=== PATIENT | female | born 1945 | race Caucasian/White ===

== ENCOUNTER 2018-08-31 10:51 | Inpatient (IN) ==
[2018-08-31] MEDS ORDERED: cefTRIAXone 1,000 MG in 0.9 % Sodium Chloride Mini Bag 100 ML IVPB ONE (11:35)
[2018-08-31 12:01] LABS: Basophils % 0.3 %; Eosinophils # 0.1 K/mcL (0.0-0.6); Eosinophils % 1.3 %; Hematocrit 32.7 % (35.3-44.9); Immature Granulocytes % 0.5 % (0-4); Lymphocytes # 1.6 K/mcL (0.6-4.6); Lymphocytes % 16.1 %; Mean Corpuscular HGB Conc 31.5 g/dL (31.6-35.5); Mean Corpuscular Hemoglobin 27.4 pg (28.0-33.3); Mean Platelet Volume 11.2 fL (9.4-12.4); Monocytes # 1.4 K/mcL (0.0-1.3); Monocytes % 13.4 %; Neutrophils # 6.9 K/mcL (1.6-8.9); Platelet Count 223 K/mcL (140-400); Red Blood Count 3.76 M/mcL (3.82-4.97); Segmented Neutrophils % 68.4 %; White Blood Count 10.1 K/mcL (4.3-11.1)
[2018-08-31 12:04] LABS: Hemoglobin 10.3 g/dL (11.5-15.4)
[2018-08-31 12:13] LABS: INR 1.7; Prothrombin Time 19.1 Seconds (9.4-12.1)
[2018-08-31 12:15] LABS: Albumin 3.2 g/dL (3.5-5.7); Albumin/Globulin Ratio 0.9 (1.1-2.2); Bilirubin,Direct 0.1 mg/dL (0.0-0.2); Bilirubin,Indirect 0.5 mg/dL (0.0-1.2); Bilirubin,Total 0.6 mg/dL (0.3-1.0); Calcium 8.8 mg/dL (8.6-10.3); Globulin 3.4 g/dL (2.4-3.5); Potassium 4.2 mEq/L (3.5-5.1); Total Protein 6.6 g/dL (6.4-8.9)
[2018-08-31 12:17] LABS: VBG HCO3 29 mEq/L (21-27); VBG PCO2 45 mmHg (41-51); VBG PH 7.42 pH Units (7.32-7.42); VBG PO2 82 mmHg (25-50)
--- NOTE | 2018-08-31 12:30 | Emergency Department Note ---
Disposition Clinical Impression: Bacteremia Urinary tract infection Qualifiers: Urinary tract infection type: site unspecified Hematuria presence: without hematuria Qualified Code(s): N39.0 - Urinary tract infection, site not specified Disposition: Admitted As Inpatient Referrals: Zofia Jennings CNP [Primary Care Provider] - Forms: ED Satisfaction Letter Time of Disposition: 13:02 Fever HPI - General Chief Complaint: ED Fever Stated Complaint: abnormal blood results Time Seen by Provider: 08/31/18 11:15 Source: patient Mode of arrival: ambulatory Limitations: no limitations Nursing Notes Reviewed: Yes Vital Signs Reviewed: Yes - History of Present Illness HPI Narrative: Patient reports onset of fever, chills, abdominal pain, and then Thursday began with some dysuria. She has frequent UTIs and thought that she had a UTI. She reports chilling, fevers, began to have severe nausea. Vomited twice Thursday. Reports epigastric pressure. Denies any chest pain or shortness of breath. Reported fatigue and malaise. She was seen in the emergency department Thursday and was diagnosed with urinary tract infection. She was febrile and tachycardic with leukocytosis and left shift. Mildly elevated lactate. ED documentation supports that since Her vitals improved and the patient improved, she was treated as an outpatient but the ED received a call at 03 31 this morning that the patient had a positive blood culture of Escherichia coli. She was contacted and told to follow up with her primary care provider. We were called again at 9 AM and told her second blood culture was positive for Escherichia coli. We contacted the patient directly who indicated that she had called for his primary care provider who could not see her immediately and since she was still febrile and nauseated she was instructed to return to the emergency department Patient reports she has continued to have some stomach cramping "every time I eat my stomach cramps" and the nausea over the last couple of days. She is persisted with fevers. Did not take any Tylenol this morning but reports her fever was 100.4. Patient denies any difficulty breathing, cough, dyspnea, wheezing, she does have a past medical history of emphysema and takes breathing treatments, and uses CPAP for sleep apnea at night. She is diabetic. States that her sugars have been running high. Uses oral hypoglycemics and no insulin. She has had a colectomy for colon cancer in 1993 but was thought to be curative She has a history of atrial fibrillation and she is on warfarin and follows with Dr. Eisenberg She has a history of hypertension, hypercholesterolemia, cholecystectomy, hyste rectomy, and the A. fib Pt Subjective Complaint: fever, malaise, weakness Onset (ago): day(s) Temperature Source: oral Associated symptoms: Reports: chills, myalgias, abdominal pain, nausea, vomiting, diarrhea, dysuria, night sweats. Denies: rigors, headache, rhinorrhea, nasal congestion, sore throat, stiff neck, cough, chest pain, dyspnea, rash, altered mental status, weight loss Improves with: acetaminophen - Related Data Home Medications Medication Instructions Recorded Confirmed Acetaminophen [Tylenol] 500 mg PO Q6HR 08/31/18 08/31/18 Albuterol Sulfate [Proair 2 puff IH Q6HR 08/31/18 08/31/18 Respiclick] Benzonatate [Tessalon] 100 mg PO TID 08/31/18 08/31/18 Carvedilol [Coreg] 25 mg PO BID 08/31/18 08/31/18 Celecoxib [Celebrex] 200 mg PO DAILY 08/31/18 08/31/18 Cyanocobalamin (Vitamin B-12) 1,000 mcg PO DAILY 08/31/18 08/31/18 [Vitamin B-12] Diclofenac Sodium [Voltaren] 4 appl TP QID 08/31/18 08/31/18 Docusate [Colace] 100 mg PO DAILY 08/31/18 08/31/18 Ferrous Sulfate [Iron] 325 mg PO BID 08/31/18 08/31/18 Fluticasone Propionate [Flovent 50 mcg IH DAILY 08/31/18 08/31/18 Diskus] Furosemide [Lasix] 20 mg PO DAILY 08/31/18 08/31/18 LORazepam [Ativan] 1 mg PO BID 08/31/18 08/31/18 Losartan Potassium [Cozaar] 50 mg PO BID 08/31/18 08/31/18 Meclizine HCl [Verticalm] 25 mg PO DAILY 08/31/18 08/31/18 Metformin HCl [Fortamet] 1,000 mg PO BID 08/31/18 08/31/18 Metoprolol Tartrate [Lopressor] 25 mg PO BID 08/31/18 08/31/18 Oxybutynin Chloride [Ditropan Xl] 5 mg PO BID 08/31/18 08/31/18 Pantoprazole Sodium [Protonix] 40 mg PO DAILY 08/31/18 08/31/18 Potassium Chloride [K-Tab ER] 20 meq PO DAILY 08/31/18 08/31/18 Promethazine [Phenergan] 25 mg PO Q8HR PRN 08/31/18 08/31/18 Propafenone HCl [Rythmol Sr] 225 mg PO Q8HR 08/31/18 08/31/18 Warfarin Sodium 1 mg PO DAILY 08/31/18 08/31/18 glyBURIDE [GlyBURIDE] 5 mg PO 0800 08/31/18 08/31/18 Allergies Allergy/AdvReac Type Severity Reaction Status Date / Time No Known Allergies Allergy Verified 08/26/16 09:45 All systems ED: reviewed and negative except as stated. Review of Systems: As Per HPI Fever PMH - Past Medical History Medical history: Reports: arthritis, atrial fibrillation, cancer, COPD, diabetes, GERD, hyperlipidemia, hypertension Surgical history: Reports: , cholecystectomy, colectomy, hysterectomy, other Psychiatric history: Reports: anxiety CAKE MAKER history: Reports: no CAKE MAKER history - Social History Smoking Status: Never smoker Alcohol use: Reports: none Drug use: Reports: none Physical Exam Constitutional: Patient is oriented to person, place, and time. Skin color is pink. Appears well hydrated, body habitus normal . Non toxic appearing. Head: Normocephalic and atraumatic. External ear exam normal Nose: Nose normal. Mouth/Throat: Uvula is midline, oropharynx is clear and moist and mucous membranes are normal. Eyes: Conjunctivae nl, extraocular motions and lids are normal. Pupils are equal, round, and reactive to light. Neck: Normal range of motion and phonation normal. Neck supple. Cardiovascular: Normal rate, regular rhythm, normal heart sounds. Pulmonary/Chest: No Respiratory distress. Respiratory Effort normal and breath sounds clear. Abdominal: Soft. Normal appearance and bowel sounds are normal. no tenderness, no masses, no guarding, no rebound Musculoskeletal: Good distal pulses. Soft compartments. Brisk cap refill. Extremities: Normal range of motion.Intact peripheral pulses. No Edema. Extremity skin color nl, no calf tenderness or palpable cords. Neurological: GCS 15. Patient is alert and oriented without evidence of obvious motor deficits Skin: Skin is warm, dry and intact. color is normal, cap refill is quick Psychiatric: Patient has normal mood and affect. Patient speech is normal. Behavior and thought content normal - General Limitations: no limitations General appearance: alert, in no apparent distress Course - Reevaluation(s) Reevaluation #1: No vomiting. Patient continues to appear nontoxic. IV fluids initiated and antibiotics. Labwork actually shows improved white blood cell count and lactate so decision was made to contact DrKaur Time: 13:10 Reevaluation #2: I discussed the case with Dr. Sears in detail. She ask for repeat blood cultures, and then a renal ultrasound which is being done and did not show hydronephrosis. She also asked me to put in orders as a courtesy which I have agreed to do. We discussed specifically patient's Coumadin dose which the patient states is 2.5 daily, antibiotics and IV fluids CODE STATUS which is full, CLAY rodrigez that she did not want the patient placed on other anticoagulants given that she is on Coumadin, and then daily labs Accu-Chek and sliding scale. I have entered these orders as a courtesy to admitting physician. Patient is aware of need for hospitalization and agreeable Time: 14:17 Vital Signs Temperature 101.2 F H 08/31/18 11:13 Pulse Rate 87 08/31/18 11:13 Respiratory Rate 20 08/31/18 11:13 Blood Pressure 170/73 08/31/18 11:13 O2 Sat by Pulse Oximetry 88 08/31/18 11:13 Temperature 98.8 F 08/31/18 13:13 Pulse Rate 70 08/31/18 12:53 Respiratory Rate 18 08/31/18 12:53 Blood Pressure 133/55 08/31/18 12:53 O2 Sat by Pulse Oximetry 97 08/31/18 12:53 Oxygen Delivery Oxygen Delivery Room Air Fever - MDM Narrative Medical decision making narrative: Concern regarding sepsis in this patient with known positive blood culture Escherichia coli and persistent fever. She does not appear toxic at this point. Workup ensued. Will require hospitalization - Lab Data Result diagrams: 08/31/18 11:45 08/31/18 11:45 Lab Results 08/31/18 08/31/18 08/31/18 Range/Units 11:45 11:45 11:45 WBC 10.1 (4.3-11.1) K/mcL RBC 3.76 L (3.82-4.97) M/mcL Hgb 10.3 L D (11.5-15.4) g/dL Hct 32.7 L (35.3-44.9) % MCV 87.0 (83.0-100.0) fL MCH 27.4 L (28.0-33.3) pg MCHC 31.5 L (31.6-35.5) g/dL RDW 15.0 H (11.5-14.5) % Plt Count 223 (140-400) K/mcL MPV 11.2 (9.4-12.4) fL Immature Gran % 0.5 (0-4) % Seg Neutrophils % 68.4 % Lymphocytes % 16.1 % Monocytes % 13.4 % Eosinophils % 1.3 % Basophils % 0.3 % Neutrophils # 6.9 (1.6-8.9) K/mcL Lymphocytes # 1.6 (0.6-4.6) K/mcL Monocytes # 1.4 H (0.0-1.3) K/mcL Eosinophils # 0.1 (0.0-0.6) K/mcL Basophils # 0.0 (0.0-0.2) K/mcL PT 19.1 H (9.4-12.1) Seconds INR 1.7 VBG pH (7.32-7.42) pH Units VBG pCO2 (41-51) mmHg VBG pO2 (25-50) mmHg VBG HCO3 (21-27) mEq/L Sodium 139 (136-145) mEq/L Potassium 4.2 (3.5-5.1) mEq/L Chloride 102 (98-107) mEq/L Carbon Dioxide 29 (23-29) mEq/L BUN 14 (8-23) mg/dL Creatinine 1.22 H (0.60-1.20) mg/dL Est GFR ( Amer) 53 L (> 60) Est GFR (Non-Af Amer) 43 L (> 60) BUN/Creatinine Ratio 11 (6-26) Glucose 186 H (70-105) mg/dL Calculated Osmolality 293 (280-300) Lactic Acid (0.5-2.2) mmol/L Calcium 8.8 (8.6-10.3) mg/dL Total Bilirubin 0.6 (0.3-1.0) mg/dL Direct Bilirubin 0.1 (0.0-0.2) mg/dL Indirect Bilirubin 0.5 (0.0-1.2) mg/dL AST 9 L (13-39) Units/L ALT 8 (7-52) Units/L Alkaline Phosphatase 66 (34-104) Units/L Serum Total Protein 6.6 (6.4-8.9) g/dL Albumin 3.2 L (3.5-5.7) g/dL Globulin 3.4 (2.4-3.5) g/dL Albumin/Globulin Ratio 0.9 L (1.1-2.2) 08/31/18 08/31/18 Range/Units 11:45 12:14 WBC (4.3-11.1) K/mcL RBC (3.82-4.97) M/mcL Hgb (11.5-15.4) g/dL Hct (35.3-44.9) % MCV (83.0-100.0) fL MCH (28.0-33.3) pg MCHC (31.6-35.5) g/dL RDW (11.5-14.5) % Plt Count (140-400) K/mcL MPV (9.4-12.4) fL Immature Gran % (0-4) % Seg Neutrophils % % Lymphocytes % % Monocytes % % Eosinophils % % Basophils % % Neutrophils # (1.6-8.9) K/mcL Lymphocytes # (0.6-4.6) K/mcL Monocytes # (0.0-1.3) K/mcL Eosinophils # (0.0-0.6) K/mcL Basophils # (0.0-0.2) K/mcL PT (9.4-12.1) Seconds INR VBG pH 7.42 (7.32-7.42) pH Units VBG pCO2 45 (41-51) mmHg VBG pO2 82 H (25-50) mmHg VBG HCO3 29 H (21-27) mEq/L Sodium (136-145) mEq/L Potassium (3.5-5.1) mEq/L Chloride (98-107) mEq/L Carbon Dioxide (23-29) mEq/L BUN (8-23) mg/dL Creatinine (0.60-1.20) mg/dL Est GFR ( Amer) (> 60) Est GFR (Non-Af Amer) (> 60) BUN/Creatinine Ratio (6-26) Glucose (70-105) mg/dL Calculated Osmolality (280-300) Lactic Acid 0.9 (0.5-2.2) mmol/L Calcium (8.6-10.3) mg/dL Total Bilirubin (0.3-1.0) mg/dL Direct Bilirubin (0.0-0.2) mg/dL Indirect Bilirubin (0.0-1.2) mg/dL AST (13-39) Units/L ALT (7-52) Units/L Alkaline Phosphatase (34-104) Units/L Serum Total Protein (6.4-8.9) g/dL Albumin (3.5-5.7) g/dL Globulin (2.4-3.5) g/dL Albumin/Globulin Ratio (1.1-2.2)
[2018-08-31] MEDS ORDERED: Acetaminophen 325 MG TABLET PO ONE (12:31)
[2018-08-31] MEDS: 0.9 % Sodium Chloride 1,000 ML IVC SCH ×2 (12:47→17:40)
[2018-08-31] MEDS ORDERED: Ertapenem 1,000 MG in 0.9 % Sodium Chloride Mini Bag 100 ML IVPB ONE (12:58)
[2018-08-31] MEDS ORDERED: *HR* Dextrose 50 % in Water (Syg) 50 ML SYRINGE IVP PRN ×2 (14:16→15:14)
[2018-08-31] MEDS ORDERED: Dextrose Gel 15 GM/37.5 ML TUBE PO PRN ×4 (14:16→15:14)
[2018-08-31] MEDS ORDERED: D5% in Water 1,000 ML IVC PRN ×2 (14:16→15:14)
[2018-08-31] MEDS ORDERED: Naloxone 0.4 MG/ML INJ IVP PRN (15:14)
[2018-08-31] MEDS ORDERED: Benzonatate 100 MG CAPSULE PO SCH (15:14)
[2018-08-31] MEDS ORDERED: 0.9 % Sodium Chloride 1,000 ML IVC SCH (15:14)
--- NOTE | 2018-08-31 15:44 | Internal Med History&Physical ---
Date of Encounter: 08/31/18 Time of Encounter: 16:52 Assessment and Plan (1) E coli bacteremia Current visit: Yes Status: Acute Her blood cultures grew Escherichia coli. Blood cultures were repeated to see if they had gotten cleared. She will need to be hospitalized for at least 48 hours of IV antibiotics past being febrile and she was febrile on admission. Her white count has gotten better her lactic acid has gotten better as well but she is high risk for illness infection due to her age her cardiac status for COPD. She received Zosyn the first femoral the ER she did receive Rocephin and Invanz here. Rocephin will be continued. Is likely due to a UTI. 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 imaging will be obtained (2) Hypertension, essential Current visit: Yes Status: Acute Will continue her on her home medications for now we will continue to follow she was significantly elevated in the emergency room (3) DM2 (diabetes mellitus, type 2) Current visit: Yes Status: Acute Continue with her home medication as long as her creatinine remained stable and her blood sugars remained stable she is on sliding scale we will also do Accu- Cheks every before meals and daily at bedtime Qualifiers: Diabetes mellitus long term care social worker insulin use: without assisted use Diabetes mellitus complication status: without complication Qualified Code(s): E11.9 - Type 2 diabetes mellitus without complications (4) Chronic obstructive pulmonary disease, unspecified Current visit: Yes Status: Acute We will use her home albuterol as needed also added duo nebs as needed. Qualifiers: COPD type: unspecified COPD Qualified Code(s): J44.9 - Chronic obstructive pulmonary disease, unspecified (5) Anxiety Current visit: Yes Status: Acute I do not plan on making any changes to her home dose of Ativan will use that as needed she will get it if she sedated (6) Depression Current visit: Yes Status: Acute Will continue her home medication of she currently only takes Ativan for this Qualifiers: Depression Type: unspecified Qualified Code(s): F32.9 - Major depressive disorder, single episode, unspecified (7) JEAN on CPAP Current visit: Yes Status: Acute Have her bring in her home CPAP machine and use her home CPAP settings at night (8) Osteoarthritis Current visit: Yes Status: Acute She takes Tylenol as an outpatient we will continue this Qualifiers: Osteoarthritis location: unspecified site Osteoarthritis type: unspecified Qualified Code(s): M19.90 - Unspecified osteoarthritis, unspecified site (9) Afib Current visit: Yes Status: Acute To coagulated on Coumadin she is slightly subtherapeutic I am not going to adjust the dose until we know at the antibiotics due to her. She is rate controlled she is on carvedilol and Propafenone and known we will put her on telemetry Qualifiers: Atrial fibrillation type: paroxysmal Qualified Code(s): I48.0 - Paroxysmal atrial fibrillation (10) DVT prophylaxis Current visit: Yes Status: Acute She gets home Coumadin her INR is 1.7 she is on IV antibiotics as this will significantly probably affect her INR I am not to make it dose adjustment but will add CLAY hose to her regimen (11) Hx of malignant neoplasm of colon Current visit: Yes Status: Acute Is not a current issue but it does increase her risk for DVT she is on Coumadin and CLAY hose (12) Urinary tract infection Current visit: Yes Status: Acute Her blood cultures are growing Escherichia coli imaging will be obtained continue her on the Rocephin continue to follow her white count imaging will also be obtained because of a history of a malrotation of the kidney Qualifiers: Urinary tract infection type: site unspecified Hematuria presence: without hematuria Qualified Code(s): N39.0 - Urinary tract infection, site not specified Internal Medicine - H&P: HPI Chief complaint: positive blood culture Admitted From: Home History of present illness: Ms. Harkins is a 73 year old female She presented to the emergency room several days prior with fevers and chills. She was given Zosyn in the emergency room her lactic acid was noted to be elevated she had an elevated white count blood cultures were drawn. She was diagnosed with the UTI she was sent home on Cipro. Her blood cultures came back positive for Escherichia coli today she was called and told to come back in for admission. She has been febrile for several days now her temperature is 101 in the emergency room. She did receive a dose or Rocephin and Invanz in the emergency room. She has a history of a malrotation upper kidney and has history frequent UTIs. She has been having urinary frequency dysuria incontinence with coughing and occasional pink urine. This has gotten better since her trip to the emergency room where she was given IV Zosyn and started on oral Cipro. She does continue to have fever she has had fevers for over a week she has chills. She does not have night sweats she did have a respiratory illness at the beginning of July for which she was given prednisone and given a nebulizer. Her cough has definitely gotten better since then. Past Med Surg Social Fam HX - Past Medical History Medical history: arthritis, atrial fibrillation, cancer (colon), COPD, diabetes, GERD, hyperlipidemia, hypertension, osteoporosis, renal disease (malrotation of kidney), other (jean,obesity, iron def,) Additional medical history: colon cancer, sleep apnea, peptic ulcer Psychiatric history: anxiety, depression - Past Surgical History Surgical History: , cataract (bilateral), cholecystectomy, colectomy (due to colon cancer), hysterectomy (1993), knee replacement (bilateral), orthopedic, other (right hisp fracture 2010, hip revision 12/2011), other ([id number],01/07/18, egd 2008,01/07/18, cardiac ablation 2009, eye surgery is unsure what it was) Additional surgical history: heart cathx2, cardiac ablation, hip revision, repaired fermur - Social History Smoking Status: Never smoker Smokeless Tobacco Status: No Alcohol use: none Drug use: none - Family History Mother Living Status: Hx Family Genitourinary Disorders: Yes (stones) Hx Family Musculoskeletal Disorders: Yes (arthritis) Father Living Status: Hx Family Cardiac Disorders: Yes (htn,mi) Hx Family Neurologic Disorders: Yes (cva) Brother Hx Family Cardiac Disorders: Yes (cad) Hx Family Endocrine Disorder: Yes (dm) Sister Hx Family Cardiac Disorders: Yes (htn,cad) Hx Family Endocrine Disorder: Yes (dm) Internal Medicine - H&P: Meds Acetaminophen [Tylenol] 500 mg PO Q6HR 08/31/18 [History] Albuterol Sulfate [Proair Respiclick] 2 puff IH Q6HR 08/31/18 [History] Benzonatate [Tessalon] 100 mg PO TID 08/31/18 [History] Carvedilol [Coreg] 25 mg PO BID 08/31/18 [History] Celecoxib [Celebrex] 200 mg PO DAILY 08/31/18 [History] Cyanocobalamin (Vitamin B-12) [Vitamin B-12] 1,000 mcg PO DAILY 08/31/18 [History] Diclofenac Sodium [Voltaren] 4 appl TP QID 08/31/18 [History] Docusate [Colace] 100 mg PO DAILY 08/31/18 [History] Ferrous Sulfate [Iron] 325 mg PO BID 08/31/18 [History] Fluticasone Propionate [Flovent Diskus] 50 mcg IH DAILY 08/31/18 [History] Furosemide [Lasix] 20 mg PO DAILY 08/31/18 [History] LORazepam [Ativan] 1 mg PO BID 08/31/18 [History] Losartan Potassium [Cozaar] 50 mg PO BID 08/31/18 [History] Meclizine HCl [Verticalm] 25 mg PO DAILY 08/31/18 [History] Metformin HCl [Fortamet] 1,000 mg PO BID 08/31/18 [History] Metoprolol Tartrate [Lopressor] 25 mg PO BID 08/31/18 [History] Oxybutynin Chloride [Ditropan Xl] 5 mg PO BID 08/31/18 [History] Pantoprazole Sodium [Protonix] 40 mg PO DAILY 08/31/18 [History] Potassium Chloride [K-Tab ER] 20 meq PO DAILY 08/31/18 [History] Promethazine [Phenergan] 25 mg PO Q8HR PRN 08/31/18 [History] Propafenone HCl [Rythmol Sr] 225 mg PO Q8HR 08/31/18 [History] Warfarin Sodium 2.5 mg PO DAILY 08/31/18 [History] glyBURIDE [GlyBURIDE] 5 mg PO 0800 08/31/18 [History] Allergy/AdvReac Type Severity Reaction Status Date / Time No Known Allergies Allergy Verified 08/26/16 09:45 All Systems PM: A 10-system review of systems was performed and is negative for pertinent findings except as documented above in the HPI. - Constitutional Constitutional: chills, fatigue, fever(s), no falls - EENT Eyes: change in vision (She had this ever since she had eye surgery on her left eye last week.) Nose, mouth and throat: sore throat (Occasional but that is gotten better), no epistaxis - Cardiovascular Cardiovascular ROS IM: lightheadedness, no chest pain, no dyspnea, no edema, no palpitations, no syncope - Respiratory Respiratory: cough, no hemoptysis, no dyspnea on exertion, no wheezing (Gotten better with the nebulizer) - Gastrointestinal Gastrointestinal: diarrhea (Improved), nausea (Occasional), no abdominal pain, no constipation, no hematemesis, no hematochezia, no melena, no vomiting - Genitourinary Genitourinary: dysuria, hematuria, urinary frequency, urinary incontinence, urinary urgency - Musculoskeletal Musculoskeletal ROS IM: arthralgias (Chronic no changes at baseline), no muscle cramps - Integumentary Integumentary IM: no pruritus, no rash, no jaundice - Neurological Neurological ROS: no frequent falls, no numbness, no tremor(s) - Endocrine Endocrine IM: fatigue - Constitutional Vitals: Temp Pulse Resp BP Pulse Ox 97.8 F 68 16 116/64 97 08/31/18 15:34 08/31/18 15:34 08/31/18 15:34 08/31/18 15:34 08/31/18 15:34 General appearance: Present: A&O X 3, pleasant, obese, answers questions a ppropriately - Head Head exam: Present: atraumatic - Neck Neck exam general surgery: Present: normal inspection, supple, trachea midline. Absent: lymphadenopathy, tenderness - Expanded Neck Exam Neck exam: Absent: carotid bruit - Respiratory Respiratory exam: Present: CTAB - Cardiovascular Cardiovascular exam: Present: RRR, +S1, +S2. Absent: systolic murmur - GI/Abdominal GI/Abdominal exam: Present: normal bowel sounds, soft, no peritoneal signs. Absent: distended, guarding, mass, tenderness - Extremities Exam Extremities exam: Present: normal capillary refill. Absent: mottling, pedal edema - Skin Skin exam: Present: dry, warm. Absent: rash Internal Med - H&P Results - Labs CBC & Chem 7: 08/31/18 11:45 08/31/18 11:45 Labs: Short CBC 08/31/18 Range/Units 11:45 WBC 10.1 (4.3-11.1) K/mcL Hgb 10.3 L D (11.5-15.4) g/dL Hct 32.7 L (35.3-44.9) % Plt Count 223 (140-400) K/mcL Neutrophils # 6.9 (1.6-8.9) K/mcL BMP 08/31/18 11:45 Sodium 139 Potassium 4.2 Chloride 102 Carbon Dioxide 29 BUN 14 Creatinine 1.22 H Glucose 186 H Calcium 8.8 Liver Function 08/31/18 Range/Units 11:45 Total Bilirubin 0.6 (0.3-1.0) mg/dL Direct Bilirubin 0.1 (0.0-0.2) mg/dL AST 9 L (13-39) Units/L ALT 8 (7-52) Units/L Alkaline Phosphatase 66 (34-104) Units/L Albumin 3.2 L (3.5-5.7) g/dL - ABG Interpretation ABG results: 08/31/18 12:14 VBG pH 7.42 VBG pCO2 45 VBG pO2 82 H VBG HCO3 29 H - Impressions ITS Impressions Retroperitoneum Ultrasound 08/31/18 13:23 IMPRESSION: Unremarkable ultrasound of the kidneys and urinary bladder. D/ /31/2018 15:05:29 Juma Rivera MD / Cora Eisenberg Interpreting Provider: Juma Rivera MD
[2018-08-31] MEDS ORDERED: Benzonatate 100 MG CAPSULE PO PRN (16:07)
[2018-08-31] MEDS ORDERED: *HR* LORazepam 1 MG TABLET PO PRN (16:08)
[2018-08-31] MEDS ORDERED: Insulin LISPRO 300 UNITS/3 ML VIAL SQ SCH ×2 (16:30→21:00)
[2018-08-31] MEDS: Insulin LISPRO 300 UNITS/3 ML VIAL SQ SCH ×2 (18:17→21:39)
[2018-08-31] MEDS ORDERED: *HR* Warfarin 2.5 MG TABLET PO ONE (19:05)
[2018-08-31] MEDS: Warfarin perPT PO SCH (19:47)
[2018-08-31] MEDS: *HR* Metformin 500 MG TABLET PO SCH (19:56)
[2018-08-31] MEDS ORDERED: NON-FORMULARY MEDICATION 1 EACH EACH (Oxybutynin Chloride [Ditropan Xl] 5 MG) PO SCH (21:00)
[2018-08-31] MEDS ORDERED: *HR* LORazepam 1 MG TABLET PO SCH (21:00)
[2018-09-01 05:53] LABS: Basophils % 0.3 %; Eosinophils # 0.2 K/mcL (0.0-0.6); Eosinophils % 1.5 %; Immature Granulocytes % 0.4 % (0-4); Lymphocytes % 20.4 %; Mean Corpuscular HGB Conc 30.3 g/dL (31.6-35.5); Mean Platelet Volume 11.8 fL (9.4-12.4); Monocytes # 1.4 K/mcL (0.0-1.3); Monocytes % 14.2 %; Neutrophils # 6.2 K/mcL (1.6-8.9); Platelet Count 208 K/mcL (140-400); Red Blood Count 3.26 M/mcL (3.82-4.97); Segmented Neutrophils % 63.2 %; White Blood Count 9.9 K/mcL (4.3-11.1)
[2018-09-01 05:58] LABS: Hemoglobin 8.8 g/dL (11.5-15.4); Prothrombin Time 22.4 Seconds (9.4-12.1)
[2018-09-01 06:08] LABS: Calcium 8.4 mg/dL (8.6-10.3); Potassium 4.3 mEq/L (3.5-5.1)
[2018-09-01] MEDS: Celecoxib 200 MG CAPSULE PO SCH (08:11)
[2018-09-01] MEDS: *HR* Metformin 500 MG TABLET PO SCH ×2 (08:11→17:51)
[2018-09-01] MEDS: Cyanocobalamin (B-12) 1,000 MCG TABLET PO SCH (08:11)
[2018-09-01] MEDS: *HR* GlyBURIDE 5 MG TABLET PO SCH (08:12)
[2018-09-01] MEDS: Furosemide 20 MG TABLET PO SCH (08:12)
[2018-09-01] MEDS: cefTRIAXone 1,000 MG in 0.9 % Sodium Chloride Mini Bag 100 ML IVPB SCH (08:14)
[2018-09-01] MEDS: Insulin LISPRO 300 UNITS/3 ML VIAL SQ SCH ×4 (09:22→21:31)
[2018-09-01] MEDS: (Fluticasone Propionate [Flovent Diskus] 50 MCG) IH SCH (09:22)
--- NOTE | 2018-09-01 11:32 | Internal Med Progress Note ---
Date of Encounter: 09/01/18 Time of Encounter: 13:56 - Assessment and plan (1) E coli bacteremia Current Visit: Yes Status: Acute Assessment and plan: It is sensitive to the Rocephin that she is on. Her white count is normal. She will need remain on IV antibiotics for at least 48 hours of being afebrile. She is aware that. Her urine is also growing the same strain of Escherichia coli (2) Hypertension, essential Current Visit: Yes Status: Acute Assessment and plan: Her blood pressure has remained in range she is on her home blood pressure medications. Will continue (3) DM2 (diabetes mellitus, type 2) Current Visit: Yes Status: Acute Assessment and plan: He is getting her home medication she is also getting sliding scale insulin as needed and Accu-Cheks every before meals and daily at bedtime Qualifiers: Diabetes mellitus usp insulin use: without usp use Diabetes me llitus complication status: without complication Qualified Code(s): E11.9 - Type 2 diabetes mellitus without complications (4) Chronic obstructive pulmonary disease, unspecified Current Visit: Yes Status: Acute Assessment and plan: She is on oxygen we will wean that she takes duo nebs as needed. Qualifiers: COPD type: unspecified COPD Qualified Code(s): J44.9 - Chronic obstructive pulmonary disease, unspecified (5) Anxiety Current Visit: Yes Status: Acute Assessment and plan: She is on her home medications no changes have been made (6) Depression Current Visit: Yes Status: Acute Qualifiers: Depression Type: unspecified Qualified Code(s): F32.9 - Major depressive disorder, single episode, unspecified (7) JEAN on CPAP Current Visit: Yes Status: Acute Assessment and plan: will have her use her home CPAP (8) Osteoarthritis Current Visit: Yes Status: Acute Assessment and plan: Tylenol at home this is being continued as needed. Qualifiers: Osteoarthritis location: unspecified site Osteoarthritis type: unspecified Qualified Code(s): M19.90 - Unspecified osteoarthritis, unspecified site (9) Afib Current Visit: Yes Status: Acute Qualifiers: Atrial fibrillation type: paroxysmal Qualified Code(s): I48.0 - Paroxysmal atrial fibrillation (10) DVT prophylaxis Current Visit: Yes Status: Acute Assessment and plan: She has CLAY hose. She also has Coumadin her INR is 2.0 so she is not a candidate for Lovenox or any other thing (11) Hx of malignant neoplasm of colon Current Visit: Yes Status: Acute (12) Urinary tract infection Current Visit: Yes Status: Acute Assessment and plan: Rocephin for this her white count is in range. Qualifiers: Urinary tract infection type: site unspecified Hematuria presence: without hematuria Qualified Code(s): N39.0 - Urinary tract infection, site not specified - Subjective Interval history: she is having some chills, some nausea no emesis, some fatigue, no pain. no cp, no sob, no cough occ dizzy no stool but just had metformin and that usually works for her, less freq, less dysuria, no more hematuria - Constitutional Vitals: Temp Pulse Resp BP Pulse Ox 97.9 F 67 18 117/63 99 09/01/18 07:36 09/01/18 07:36 09/01/18 07:36 09/01/18 07:36 09/01/18 07:36 General appearance: Present: A&O X 3, pleasant, obese, answers questions appropriately - Head Head exam: Present: atraumatic, normocephalic - Neck Neck exam general surgery: Present: normal inspection, trachea midline. Absent: lymphadenopathy - Respiratory Respiratory exam: Present: CTAB - Cardiovascular Cardiovascular exam: Present: RRR, +S1, +S2. Absent: systolic murmur - GI/Abdominal GI/Abdominal exam: Present: normal bowel sounds, soft, no peritoneal signs. Absent: distended, guarding, tenderness - Extremities Exam Extremities exam: Present: normal capillary refill, warm. Absent: mottling (clay hose in place), pedal edema - Skin Skin exam: Present: dry, warm Internal Medicine: Result - Labs CBC & Chem 7: 09/01/18 05:15 09/01/18 05:15 Labs: Short CBC 08/31/18 09/01/18 Range/Units 11:45 05:15 WBC 10.1 9.9 (4.3-11.1) K/mcL Hgb 10.3 L D 8.8 L D (11.5-15.4) g/dL Hct 32.7 L 29.0 L (35.3-44.9) % Plt Count 223 208 (140-400) K/mcL Neutrophils # 6.9 6.2 (1.6-8.9) K/mcL BMP 08/31/18 09/01/18 11:45 05:15 Sodium 139 135 L Potassium 4.2 4.3 Chloride 102 105 Carbon Dioxide 29 29 BUN 14 12 Creatinine 1.22 H 1.12 Glucose 186 H 174 H Calcium 8.8 8.4 L Liver Function 08/31/18 Range/Units 11:45 Total Bilirubin 0.6 (0.3-1.0) mg/dL Direct Bilirubin 0.1 (0.0-0.2) mg/dL AST 9 L (13-39) Units/L ALT 8 (7-52) Units/L Alkaline Phosphatase 66 (34-104) Units/L Albumin 3.2 L (3.5-5.7) g/dL - ABG Interpretation ABG results: PT/INR, D-dimer PT 22.4 Seconds (9.4-12.1) H 09/01/18 05:15 - Impressions Impressions Retroperitoneum Ultrasound 08/31/18 13:23 IMPRESSION: Unremarkable ultrasound of the kidneys and urinary bladder. D/ 08/31/2018 15:05:29 Juma Rivera MD / Cora Eisenberg Interpreting Provider: Juma Rivera MD Consult Discharge Plan - Plan Referrals: Zofia Jennings, [facility] [Primary Care Provider] -
[2018-09-01] MEDS: Warfarin perPT PO SCH (17:52)
[2018-09-01] MEDS ORDERED: *HR* Warfarin 2.5 MG TABLET PO ONE (18:00)
[2018-09-02 05:37] LABS: Basophils % 0.3 %; Eosinophils # 0.3 K/mcL (0.0-0.6); Eosinophils % 2.8 %; Hematocrit 28.9 % (35.3-44.9); Hemoglobin 8.7 g/dL (11.5-15.4); Immature Granulocytes % 0.4 % (0-4); Lymphocytes # 3.1 K/mcL (0.6-4.6); Lymphocytes % 32.6 %; Mean Corpuscular HGB Conc 30.1 g/dL (31.6-35.5); Mean Corpuscular Hemoglobin 26.7 pg (28.0-33.3); Mean Corpuscular Volume 88.7 fL (83.0-100.0); Mean Platelet Volume 11.7 fL (9.4-12.4); Monocytes # 1.1 K/mcL (0.0-1.3); Neutrophils # 4.9 K/mcL (1.6-8.9); Platelet Count 227 K/mcL (140-400); Red Blood Count 3.26 M/mcL (3.82-4.97); Segmented Neutrophils % 51.9 %; White Blood Count 9.4 K/mcL (4.3-11.1)
[2018-09-02 05:40] LABS: Prothrombin Time 23.1 Seconds (9.4-12.1)
[2018-09-02 05:51] LABS: BUN/Creatinine Ratio 13 (6-26); Blood Urea Nitrogen 13 mg/dL (8-23); Calcium 8.6 mg/dL (8.6-10.3); Carbon Dioxide 28 mEq/L (23-29); Chloride 107 mEq/L (98-107); Glucose 87 mg/dL (70-105); Osmolality,Calculated 287 (280-300); Sodium 139 mEq/L (136-145); eGFR For African Americans > 60 (> 60); eGFR For Non-African Americans 52 (> 60)
[2018-09-02] MEDS: *HR* Metformin 500 MG TABLET PO SCH ×2 (08:58→16:53)
[2018-09-02] MEDS: Cyanocobalamin (B-12) 1,000 MCG TABLET PO SCH (08:59)
[2018-09-02] MEDS: *HR* GlyBURIDE 5 MG TABLET PO SCH (08:59)
[2018-09-02] MEDS: Celecoxib 200 MG CAPSULE PO SCH (08:59)
[2018-09-02] MEDS: Furosemide 20 MG TABLET PO SCH (09:00)
[2018-09-02] MEDS: cefTRIAXone 1,000 MG in 0.9 % Sodium Chloride Mini Bag 100 ML IVPB SCH (09:01)
[2018-09-02] MEDS: Insulin LISPRO 300 UNITS/3 ML VIAL SQ SCH ×4 (09:01→20:27)
[2018-09-02] MEDS: (Fluticasone Propionate [Flovent Diskus] 50 MCG) IH SCH (09:03)
--- NOTE | 2018-09-02 13:24 | Internal Med Progress Note ---
Date of Encounter: 09/02/18 Time of Encounter: 13:22 - Assessment and plan (1) E coli bacteremia Current Visit: Yes Status: Acute Assessment and plan: It is sensitive to the Rocephin that she is on. Her white count is normal. She will need remain on IV antibiotics for at least 48 hours of being afebrile. She is aware that. Her urine is also growing the same strain of Escherichia coli (2) Hypertension, essential Current Visit: Yes Status: Acute Assessment and plan: Her blood pressure has remained in range she is on her home blood pressure medications. Will continue (3) DM2 (diabetes mellitus, type 2) Current Visit: Yes Status: Acute Assessment and plan: He is getting her home medication she is also getting sliding scale insulin as needed and Accu-Cheks every before meals and daily at bedtime Qualifiers: Diabetes mellitus half-way insulin use: without half-way use Diabetes me llitus complication status: without complication Qualified Code(s): E11.9 - Type 2 diabetes mellitus without complications (4) Chronic obstructive pulmonary disease, unspecified Current Visit: Yes Status: Acute Assessment and plan: She is on oxygen we will wean that she takes duo nebs as needed. Qualifiers: COPD type: unspecified COPD Qualified Code(s): J44.9 - Chronic obstructive pulmonary disease, unspecified (5) Anxiety Current Visit: Yes Status: Acute Assessment and plan: She is on her home medications no changes have been made (6) Depression Current Visit: Yes Status: Acute Qualifiers: Depression Type: unspecified Qualified Code(s): F32.9 - Major depressive disorder, single episode, unspecified (7) JEAN on CPAP Current Visit: Yes Status: Acute Assessment and plan: will have her use her home CPAP (8) Osteoarthritis Current Visit: Yes Status: Acute Assessment and plan: Tylenol at home this is being continued as needed. Qualifiers: Osteoarthritis location: unspecified site Osteoarthritis type: unspecified Qualified Code(s): M19.90 - Unspecified osteoarthritis, unspecified site (9) Afib Current Visit: Yes Status: Acute Assessment and plan: rate controlled anticoag on coumadin Qualifiers: Atrial fibrillation type: paroxysmal Qualified Code(s): I48.0 - Paroxysmal atrial fibrillation (10) DVT prophylaxis Current Visit: Yes Status: Acute Assessment and plan: She has CLAY hose. She also has Coumadin her INR is 2.0 so she is not a winifred date for Lovenox or any other thing (11) Hx of malignant neoplasm of colon Current Visit: Yes Status: Acute (12) Urinary tract infection Current Visit: Yes Status: Acute Assessment and plan: Rocephin for this her white count is in range. Qualifiers: Urinary tract infection type: site unspecified Hematuria presence: without hematuria Qualified Code(s): N39.0 - Urinary tract infection, site not specified - Subjective Interval history: she is havingno more chills, no night sweats, no nausea no emesis, some fatigue, no pain. no cp, no sob, no cough no dizzy had stool less freq, less dysuria, no more hematuria - Constitutional Vitals: Temp Pulse Resp BP Pulse Ox 98.7 F 65 16 143/80 95 09/02/18 11:00 09/02/18 11:00 09/02/18 11:00 09/02/18 11:00 09/02/18 11:00 General appearance: Present: A&O X 3, pleasant, obese, answers questions appropriately - Head Head exam: Present: atraumatic, normocephalic - Neck Neck exam general surgery: Present: normal inspection, supple, trachea midline. Absent: lymphadenopathy - Respiratory Respiratory exam: Present: CTAB - Cardiovascular Cardiovascular exam: Present: RRR, +S1, +S2. Absent: systolic murmur - GI/Abdominal GI/Abdominal exam: Present: normal bowel sounds, soft, no peritoneal signs. Absent: distended, guarding, tenderness - Extremities Exam Extremities exam: Present: normal capillary refill. Absent: pedal edema (clay hose bilat) - Skin Skin exam: Present: dry, warm. Absent: rash Internal Medicine: Result - Labs CBC & Chem 7: 09/02/18 05:10 09/02/18 05:10 Labs: Short CBC 09/02/18 Range/Units 05:10 WBC 9.4 (4.3-11.1) K/mcL Hgb 8.7 L (11.5-15.4) g/dL Hct 28.9 L (35.3-44.9) % Plt Count 227 (140-400) K/mcL Neutrophils # 4.9 (1.6-8.9) K/mcL BMP 09/02/18 05:10 Sodium 139 Potassium 4.0 Chloride 107 Carbon Dioxide 28 BUN 13 Creatinine 1.04 Glucose 87 Calcium 8.6 - ABG Interpretation ABG results: PT/INR, D-dimer PT 23.1 Seconds (9.4-12.1) H 09/02/18 05:10 Consult Discharge Plan - Plan Referrals: Zofia Jennings, [facility] [Primary Care Provider] -
[2018-09-02] MEDS: Warfarin perPT PO SCH (16:54)
[2018-09-02] MEDS ORDERED: *HR* Warfarin 2.5 MG TABLET PO ONE (18:00)
[2018-09-03 06:01] LABS: Basophils # 0.1 K/mcL (0.0-0.2); Basophils % 0.6 %; Eosinophils # 0.3 K/mcL (0.0-0.6); Eosinophils % 2.9 %; Hematocrit 29.7 % (35.3-44.9); Hemoglobin 9.3 g/dL (11.5-15.4); Immature Granulocytes % 0.8 % (0-4); Lymphocytes # 3.4 K/mcL (0.6-4.6); Lymphocytes % 32.9 %; Mean Corpuscular HGB Conc 31.3 g/dL (31.6-35.5); Mean Corpuscular Hemoglobin 27.5 pg (28.0-33.3); Mean Corpuscular Volume 87.9 fL (83.0-100.0); Mean Platelet Volume 11.3 fL (9.4-12.4); Monocytes # 1.2 K/mcL (0.0-1.3); Monocytes % 11.5 %; Neutrophils # 5.3 K/mcL (1.6-8.9); Platelet Count 294 K/mcL (140-400); Red Blood Count 3.38 M/mcL (3.82-4.97); Segmented Neutrophils % 51.3 %; White Blood Count 10.4 K/mcL (4.3-11.1)
[2018-09-03 06:06] LABS: INR 2.4; Prothrombin Time 27.7 Seconds (9.4-12.1)
[2018-09-03 06:14] LABS: BUN/Creatinine Ratio 11 (6-26); Blood Urea Nitrogen 12 mg/dL (8-23); Calcium 9.1 mg/dL (8.6-10.3); Carbon Dioxide 29 mEq/L (23-29); Chloride 105 mEq/L (98-107); Glucose 78 mg/dL (70-105); Osmolality,Calculated 285 (280-300); Sodium 138 mEq/L (136-145); eGFR For African Americans > 60 (> 60); eGFR For Non-African Americans 51 (> 60)
[2018-09-03 06:18] LABS: Anisocytosis 1+ (Not Present); Platelet Estimate Normal (Normal); Poikilocytosis 1+ (Not Present)
[2018-09-03] MEDS: (Fluticasone Propionate [Flovent Diskus] 50 MCG) IH SCH (07:57)
[2018-09-03] MEDS: Insulin LISPRO 300 UNITS/3 ML VIAL SQ SCH ×3 (07:57→17:30)
[2018-09-03] MEDS: cefTRIAXone 1,000 MG in 0.9 % Sodium Chloride Mini Bag 100 ML IVPB SCH (08:30)
[2018-09-03] MEDS: Cyanocobalamin (B-12) 1,000 MCG TABLET PO SCH (08:31)
[2018-09-03] MEDS: Celecoxib 200 MG CAPSULE PO SCH (08:31)
[2018-09-03] MEDS: *HR* GlyBURIDE 5 MG TABLET PO SCH (08:31)
[2018-09-03] MEDS: Furosemide 20 MG TABLET PO SCH (08:31)
[2018-09-03] MEDS: *HR* Metformin 500 MG TABLET PO SCH ×2 (08:31→17:30)
--- NOTE | 2018-09-03 16:51 | Discharge Summary ---
Orders not resulted at time of discharge: Pending orders 08/31/18 12:00 Culture,Blood [BC] Stat 09/04/18 04:00 CBC [Complete Blood Count] [HEME] AM 0400 Chem 7 [Basic Metabolic Panel] AM 0400 INR/PT [Prothrombin Time INR] [COAG] AM 0400 09/05/18 04:00 CBC [Complete Blood Count] [HEME] AM 0400 Chem 7 [Basic Metabolic Panel] AM 0400 INR/PT [Prothrombin Time INR] [COAG] AM 0400 Date of Encounter: 09/03/18 Time of Encounter: 12:30 - Discharge Diagnosis (1) E coli bacteremia Priority: Primary Status: Acute Comments: Her blood cultures initially grew out Escherichia coli was sensitive to Rocephin she was on IV Rocephin I did call the day of discharge they been negative for 48 hours who went ahead and send her home on cipro. initially sendt augment but ecoli was ampicillin resisitentshe is to follow-up in the office if she has any fevers chills urinary tract symptoms or anything she is to seek immediate attention. She did have an ultrasound that was normal. She is to follow-up in the office next week (2) Hypertension, essential Priority: Secondary Status: Acute Comments: Blood pressure was stable on her home medications no changes were made to this (3) DM2 (diabetes mellitus, type 2) Priority: Secondary Status: Acute Comments: Stable on her home medications her changes were made to this Qualifiers: Diabetes mellitus assisted insulin use: without terminal make up operator use Diabetes mellitus complication status: without complication Qualified Code(s): E11.9 - Type 2 diabetes mellitus without complications (4) Chronic obstructive pulmonary disease, unspecified Priority: Secondary Status: Acute Comments: She was on her home medications. No changes were made to those Qualifiers: COPD type: unspecified COPD Qualified Code(s): J44.9 - Chronic obstructive pulmonary disease, unspecified (5) Anxiety Priority: Secondary Status: Acute Comments: Her home medication no changes were made (6) Depression Priority: Secondary Status: Acute Comments: No changes were made to her home medication she only takes the benzo for this Qualifiers: Depression Type: unspecified Qualified Code(s): F32.9 - Major depressive disorder, single episode, unspecified (7) JEAN on CPAP Priority: Secondary Status: Acute Comments: on home CPAP she is not hypoxic when she sleeps with her CPAP she was encouraged or her CPAP discussed the importance of compliance with this she was was not always compliant with her home CPAP (8) Osteoarthritis Priority: Secondary Status: Acute Comments: Was nonissue this admission Qualifiers: Osteoarthritis location: unspecified site Osteoarthritis type: unspecified Qualified Code(s): M19.90 - Unspecified osteoarthritis, unspecified site (9) Afib Priority: Secondary Status: Acute Comments: Is anticoagulated on Coumadin her INR did increase from 1.72.4 with the Rocephin will continue on her home dose of Coumadin and she is to follow-up in the office next week will repeat it then she is rate controlled on her home medication Qualifiers: Atrial fibrillation type: paroxysmal Qualified Code(s): I48.0 - Paroxysmal atrial fibrillation (10) DVT prophylaxis Priority: Secondary Status: Acute Comments: sHe was on CLAY hose and Coumadin (11) Hx of malignant neoplasm of colon Priority: Secondary Status: Acute (12) Urinary tract infection Priority: Secondary Status: Acute Comments: Her culture and blood culture grew the same Escherichia coli it was sensitive to Rocephin she was sent home on the cipro she was on Qualifiers: Urinary tract infection type: site unspecified Hematuria presence: without hematuria Qualified Code(s): N39.0 - Urinary tract infection, site not specified Hospital course: Ms. Harkins is a 73 year old female - Time Spent with Patient Total time spent providing and/or coordinating discharge services: - Discharge Medications Prescriptions: New Warfarin [Coumadin] 2.5 mg PO 1800 tablet Ciprofloxacin HCl [Cipro] 500 mg PO BID #14 tablet Continued LORazepam [Ativan] 1 mg PO BID glyBURIDE [GlyBURIDE] 5 mg PO 0800 Benzonatate [Tessalon] 100 mg PO TID Carvedilol [Coreg] 25 mg PO BID Fluticasone Propionate [Flovent Diskus] 50 mcg IH DAILY Ferrous Sulfate [Iron] 325 mg PO BID Docusate [Colace] 100 mg PO DAILY Furosemide [Lasix] 20 mg PO DAILY Pantoprazole Sodium [Protonix] 40 mg PO DAILY Losartan Potassium [Cozaar] 50 mg PO BID Cyanocobalamin (Vitamin B-12) [Vitamin B-12] 1,000 mcg PO DAILY Meclizine HCl [Verticalm] 25 mg PO DAILY Metformin HCl [Fortamet] 1,000 mg PO BID Potassium Chloride [K-Tab ER] 20 meq PO DAILY Propafenone HCl [Rythmol Sr] 225 mg PO Q8HR Promethazine [Phenergan] 25 mg PO Q8HR PRN PRN Reason: nausea Acetaminophen [Tylenol] 500 mg PO Q6HR Warfarin Sodium 2.5 mg PO DAILY Diclofenac Sodium [Voltaren] 4 appl TP QID Albuterol Sulfate [Proair Respiclick] 2 puff IH Q6HR Discontinued Celecoxib [Celebrex] 200 mg PO DAILY Oxybutynin Chloride [Ditropan Xl] 5 mg PO BID Metoprolol Tartrate [Lopressor] 25 mg PO BID Home Medications: Acetaminophen [Tylenol] 500 mg PO Q6HR 08/31/18 [History] Albuterol Sulfate [Proair Respiclick] 2 puff IH Q6HR 08/31/18 [History] Benzonatate [Tessalon] 100 mg PO TID 08/31/18 [History] Carvedilol [Coreg] 25 mg PO BID 08/31/18 [History] Cyanocobalamin (Vitamin B-12) [Vitamin B-12] 1,000 mcg PO DAILY 08/31/18 [History] Diclofenac Sodium [Voltaren] 4 appl TP QID 08/31/18 [History] Docusate [Colace] 100 mg PO DAILY 08/31/18 [History] Ferrous Sulfate [Iron] 325 mg PO BID 08/31/18 [History] Fluticasone Propionate [Flovent Diskus] 50 mcg IH DAILY 08/31/18 [History] Furosemide [Lasix] 20 mg PO DAILY 08/31/18 [History] LORazepam [Ativan] 1 mg PO BID 08/31/18 [History] Losartan Potassium [Cozaar] 50 mg PO BID 08/31/18 [History] Meclizine HCl [Verticalm] 25 mg PO DAILY 08/31/18 [History] Metformin HCl [Fortamet] 1,000 mg PO BID 08/31/18 [History] Pantoprazole Sodium [Protonix] 40 mg PO DAILY 08/31/18 [History] Potassium Chloride [K-Tab ER] 20 meq PO DAILY 08/31/18 [History] Promethazine [Phenergan] 25 mg PO Q8HR PRN 08/31/18 [History] Propafenone HCl [Rythmol Sr] 225 mg PO Q8HR 08/31/18 [History] Warfarin Sodium 2.5 mg PO DAILY 08/31/18 [History] glyBURIDE [GlyBURIDE] 5 mg PO 0800 08/31/18 [History] Ciprofloxacin HCl [Cipro] 500 mg PO BID #14 tablet 09/03/18 [Rx] Warfarin [Coumadin] 2.5 mg PO 1800 tablet 09/03/18 [Rx] Allergies/Adverse Reactions: Allergy/AdvReac Type Severity Reaction Status Date / Time No Known Allergies Allergy Verified 08/26/16 09:45 Date of admission: 08/31/18 17:47 Primary care physician: Zofia Jennings CNP - Constitutional Vitals: Temp Pulse Resp BP Pulse Ox 98.6 F 67 16 145/75 99 09/03/18 11:15 09/03/18 11:15 09/03/18 11:15 09/03/18 11:15 09/03/18 11:15 General appearance: Present: A&O X 3, pleasant, obese, answers questions approp riately - Head Head exam: Present: atraumatic, normocephalic - Neck Neck exam general surgery: Present: normal inspection, supple, trachea midline - Respiratory Respiratory exam: Present: CTAB - Cardiovascular Cardiovascular exam: Present: RRR, +S1, +S2. Absent: systolic murmur - GI/Abdominal GI/Abdominal exam: Present: normal bowel sounds, soft, no peritoneal signs. Absent: distended, guarding, mass, tenderness - Extremities Exam Extremities exam: Present: joint swelling (d hose), normal capillary refill (te), pedal edema, warm. Absent: mottling, tenderness - Skin Skin exam: Present: dry, warm. Absent: rash - Patient Status Disposition: Home, Self-Care Condition: Good Functional capacity at discharge: independent ambulation Overall status at discharge: patient is progressing back to baseline - Discharge Instructions Instructions: Atrial Fibrillation (DC), Urinary Tract Infection in Women (DC), Diabetes Mellitus Type 2 in Adults (DC), Chronic Obstructive Pulmonary Disease (DC), Chronic Hypertension (DC), Anxiety (DC) Follow Up With: Zofia Jennings CNP [Primary Care Provider] - 09/10/18 2:45 pm Additional Instructions: check your inr on thursday coumadin and cipro can interact. - Diet and Activity Activity: increase activity as tolerated Diet: low fat, low cholesterol
[2018-09-03 17:10] VITALS: BP 174/70
[2018-09-03] MEDS ORDERED: *HR* Warfarin 2 MG TABLET PO ONE (18:00)
== END 2018-09-03 18:08 | disposition home or self-care (01) | DRG 690 ==
LOC: EMEROOGRE 10:51 → INTOOBSV 14:24 → INPGRE 14:24
PROVIDERS: ADMIT Family Medicine; ATTEND Family Medicine